=== PATIENT | male | born 1975 | race Caucasian/White ===

== ENCOUNTER 2017-10-13 07:42 | Day surgery (SDC) | payer BC ==
[2017-10-13] MEDS ORDERED: Sodium Chloride 0.9% 1,000 ML IV SCH (08:30)
[2017-10-13] MEDS ORDERED: Propofol 200 MG/20 ML SDV ONE (10:02)
[2017-10-13] MEDS ORDERED: fentaNYL 100 MCG/2 ML SDV ONE (10:02)
[2017-10-13] MEDS ORDERED: Midazolam 1 MG/ML 2 ML SDV ONE (10:02)
[2017-10-13 11:11] VITALS: BP 121/86
--- NOTE | 2017-10-13 14:27 | OR ---
DATE OF PROCEDURE: 10/13/2017 PROCEDURE: Colonoscopy. FINDINGS: Prominent hemorrhoids. COMPLICATIONS: None. PETROLOGY TEACHER: None. PREOPERATIVE DIAGNOSIS: Concern for rectal prolapse. POSTOPERATIVE DIAGNOSIS: Concern for rectal prolapse. RISKS: Risks, benefits, alternatives, and limitations including, but not limited to infection, bleeding, and perforation were explained to the patient, who wished to proceed. PROCEDURE IN DETAIL: The patient was placed in left lateral decubitus position. Digital rectal exam was performed without abnormality. The scope was introduced and advanced atraumatically to the ileocecal valve. The scope was brought back to the ascending, transverse, descending colon, and retroflexed. As far as the rectal prolapse, the patient did have very prominent hemorrhoids and that could not be concerned. All three hemorrhoidal piles were prominent, but no abnormalities were noted other than this. The patient tolerated the procedure well. Johnny Guidry MD /[id number]
== END 2017-10-13 12:14 | disposition home or self-care (01) ==
LOC: JP.SDS 07:42
PROVIDERS: ATTEND Surgery
DX: K64.8 Other hemorrhoids (principal); F17.200 Nicotine dependence, unspecified, uncomplicated
CPT/HCPCS: 45378; J2250; J2704; J3010; J7030

== ENCOUNTER 2018-01-02 06:35 | Day surgery (SDC) | payer BC ==
[2018-01-02] MEDS ORDERED: Sodium Chloride 0.9% 1,000 ML IV SCH (07:00)
[2018-01-02] MEDS ORDERED: ceFAZolin 2 GM in Sodium Chloride 0.9% 50 ML IV ONE (07:00)
[2018-01-02] MEDS ORDERED: Midazolam 1 MG/ML 2 ML SDV ONE (07:29)
[2018-01-02] MEDS ORDERED: Propofol 200 MG/20 ML SDV ONE (07:29)
[2018-01-02] MEDS ORDERED: fentaNYL 100 MCG/2 ML SDV ONE (07:29)
[2018-01-02 09:25] VITALS: BP 124/81
--- NOTE | 2018-01-02 10:28 | OR ---
DATE OF PROCEDURE: 01/02/2018 PROCEDURES: 1. Anal exam under anesthesia. 2. Biopsy, rectal mass. 3. Hemorrhoid banding, x2. COMPLICATIONS: None. CHART PICKER: None. ANESTHESIA: MAC/local. INDICATIONS: A pleasant 42-year-old male with prominent hemorrhoids/rectal prolapse. The patient and I discussed, at multiple visits, plan for this, which originally started with nonoperative therapy, advanced to hemorrhoid banding today. We discussed risks, benefits, alternatives, and limitations including, but not limited to infection, bleeding, and injury to structures such as colon perforation and other risks not listed here. PROCEDURE IN DETAIL: The patient was placed in jackknife prone position. The C-shaped anoscopy device was introduced, and this was evaluated. With the patient in the prone position, at the 12 o'clock position, there was a prominent mass most consistent with a very inflamed internal hemorrhoids, which had been prolapsed. These areas were banded x2. No other abnormalities were noted. A small piece was taken for pathological diagnosis to ensure no malignancy. Minimal bleeding was noted after this. Of note, the biopsy location was performed using a 15 blade distal with respect to the blood supply to the band themselves. The patient tolerated the procedure well. Johnny Guidry MD /[id number]
== END 2018-01-02 09:15 | disposition home or self-care (01) ==
LOC: JP.SDS 06:35
PROVIDERS: ATTEND Surgery
DX: K64.8 Other hemorrhoids (principal); F17.200 Nicotine dependence, unspecified, uncomplicated
CPT/HCPCS: 46221; 46606; J0690; J2250; J2704; J3010; J7030; J7050